=== PATIENT | male | born 1980 | race African-American/Black ===

== ENCOUNTER 2017-02-03 09:32 | Emergency (ER) | payer OTHER ==
[~2017-02-03] VITALS: Ht 180.3 cm; Wt 103.6 kg
[2017-02-03] MEDS ORDERED: NORCO 5/3251 TABLET PO (12:52)
[2017-02-03] MEDS ORDERED: MOTRIN600 MG PO (12:52)
[2017-02-03 13:18] VITALS: BP 149/93
== END 2017-02-03 17:46 | disposition home or self-care (01) ==
LOC: EME 09:32 → TRA 09:32 → EME 17:46
PROC: 3E0234Z Introduction of Serum, Toxoid and Vaccine into Muscle, Percutaneous Approach (ICD-10-PCS; principal; 2017-02-03)
DX: S70.02XA Contusion of left hip, initial encounter (principal); S50.12XA Contusion of left forearm, initial encounter; S00.81XA Abrasion of other part of head, initial encounter; S60.811A Abrasion of right wrist, initial encounter; S50.812A Abrasion of left forearm, initial encounter; M79.651 Pain in right thigh; V48.5XXA Car driver injured in noncollision transport accident in traffic accident, initial encounter; Z23 Encounter for immunization; Z72.0 Tobacco use
CPT/HCPCS: 70450; 71020; 72170; 72192; 73090; 73552; 99281; 99284